=== PATIENT | female | born 1940 | race Caucasian/White ===

== ENCOUNTER 2017-12-31 12:55 | Outpatient (CLI) | payer MEDICARE | END 2017-12-31 12:56 | disposition home or self-care (01) | LOC: BICMAMMO 12:55 | PROVIDERS: ATTEND Internal Medicine | DX: Z12.31 Encounter for screening mammogram for malignant neoplasm of breast (principal) | CPT/HCPCS: 77063; 77067 ==

== ENCOUNTER 2018-01-20 18:15 | Observation (INO) | payer MEDICARE ==
[2018-01-20 18:58] LABS: #Eosinphils 0.1 thou/uL (0.0-0.7); #Lymphocytes 1.6 thou/uL (1.20-3.40); #Monocytes 0.5 thou/uL (0.11-0.59); #Neutrophils 3.7 thou/uL (1.40-6.50); %Basophils 0.5 % (0.0-1.0); %Eosinophils 2.2 % (0.0-10.0); %Lymphocytes 26.3 % (21.0-51.0); %Monocytes 8.2 % (0.0-10.0); %Neutrophils 62.8 % (42.0-75.0); Hemoglobin 13.3 g/dL (12.0-16.0); Mean Corpuscular HGB CONC 34.4 g/dL (32.0-36.0); Mean Corpuscular Hemoglobin 33.7 pg (27.0-31.0); Mean Corpuscular Volume 98.2 fl (81.0-99.0); Mean Platelet Volume 5.8 fL (7.4-10.4); Platelet Count 191 thou/uL (130-400); RBC Distribution Width 11.1 % (11.5-14.5); Red Blood Cell (RBC) Count 3.95 mill/uL (4.20-5.40); White Blood Cell (WBC) Count 5.9 thou/uL (4.8-10.8)
[2018-01-20 19:21] LABS: ALT (SGPT) 17 U/L (8-55); AST (SGOT) 26 U/L (5-34); Alkaline Phosphatase 95 U/L (40-150); Anion Gap 12 mmol/L (10-20); BUN (Urea Nitrogen) 37 mg/dL (9.8-20.1); Bilirubin, Total 0.6 mg/dL (0.2-1.2); Calc. Creatinine Clearance 0 mL/min (70-130); Calcium 9.6 mg/dL (7.8-10.44); Carbon Dioxide 22 mmol/L (23-31); Chloride 102 mmol/L (98-107); Estimated GFR-MDRD 26; Globulin 2.9 g/dL (2.4-3.5); Glucose 123 mg/dL (83-110); Potassium 4.5 mmol/L (3.5-5.1); Protein, Total 6.9 g/dL (6.0-8.3); Sodium 131 mmol/L (136-145)
[2018-01-20 20:31] LABS: Prothrombin Time 13.7 SEC (12.0-14.7)
[2018-01-20] MEDS ORDERED: cloNIDine 0.1 MG TAB ONE (21:47)
--- NOTE | 2018-01-20 22:09 | CT ---
CT HEAD WITHOUT CONTRAST: 01/20/18 Multiple axial tomograms obtained through the head without IV enhancement. HISTORY: Mental status change. Ventricles have normal size and position. No evidence of intracranial hemorrhage, mass or infarct. IMPRESSION: No acute abnormality. POS: [facility]
[2018-01-20] MEDS ORDERED: hydrALAZINE 20 MG/ML VIAL ONE (22:30)
[2018-01-20] MEDS ORDERED: Acetaminophen 325 MG TAB PO PRN (23:57)
[2018-01-20] MEDS ORDERED: Ondansetron ODT 4 MG TAB SL PRN (23:57)
[2018-01-20] MEDS ORDERED: Sodium Chloride 0.9% 1,000 ML IV SCH (23:57)
[2018-01-20] MEDS ORDERED: Ondansetron HCl/PF 4 MG/2 ML Vial IVP PRN (23:57)
[2018-01-21] MEDS ORDERED: ALPRAZolam 0.5 MG TAB PO SCH (01:45)
[2018-01-21 02:34] VITALS: BMI 24.9
[2018-01-21] MEDS ORDERED: Acetaminophen 325 MG TAB PO PRN (05:00)
[2018-01-21] MEDS ORDERED: Sodium Chloride 0.9% 1,000 ML IV SCH ×2 (05:15→09:18)
--- NOTE | 2018-01-21 05:26 | HP ---
REASON FOR ADMISSION: Ataxic gait, acute kidney injury. HISTORY OF PRESENTING ILLNESS: Please note, patient is not a very good historian. She states she has been having trouble falling from last 24 hours when she tries to get up and walk. She is a right-handed person. No prior history of cerebrovascular accident. Per ER physician, patient apparently had upper extremity tremors and jerking spells, which started around 4:00 p.m. yesterday. The first episode occurred when she was at her hairdresser. She had a fall from standing position. On arrival in the ER, patient has had another episode, which lasted less than 10 seconds. The ER physician tried to ambulate patient, but patient was at high risk for fall even for standing. Currently, she has no complaints of chest pain, palpitation, PND, or orthopnea. No complaints of cough or expectoration. No complaints of urinary symptoms. PAST MEDICAL AND SURGICAL HISTORY: History of coronary artery disease with prior stent, hypertension, dyslipidemia, has had right nephrectomy done for infection when she was 31 years old, right carotid endarterectomy done by Dr. Ratliff 5 or 6 years back, hysterectomy, back surgery. CURRENT MEDICATIONS: Patient is on Plavix 75 mg daily, estrogen daily, losartan 50 mg twice daily, niacin 500 mg p.o. at bedtime. ALLERGIES: NORVASC and QUININE. PERSONAL HISTORY: Does not abuse alcohol or drugs. She lives with her . FAMILY HISTORY: Mother at the age of 94 years. She has had history of coronary artery disease. Father at the age of 76 years. He has had hardening of arteries. REVIEW OF SYSTEMS: The following complete review of systems was negative, unless otherwise mentioned in the HPI or below: Constitutional: Weight loss or gain, ability to conduct usual activities. Skin: Rash, itching. Eyes: Double vision, pain. ENT/Mouth: Nose bleeding, neck stiffness, pain, tenderness. Cardiovascular: Palpitations, dyspnea on exertion, orthopnea. Respiratory: Shortness of breath, wheezing, cough, hemoptysis, fever, or night sweats. Gastrointestinal: Poor appetite, abdominal pain, heartburn, nausea, vomiting, constipation, or diarrhea. Genitourinary: Urgency, frequency, dysuria, nocturia. Musculoskeletal: Pain, swelling. Neurologic/Psychiatric: Anxiety, depression. Allergy/Immunologic: Skin rash, bleeding tendency. PHYSICAL EXAMINATION: GENERAL: Patient is a 77-year-old female who is currently not in any acute distress. VITAL SIGNS: Blood pressure was 184/74 on arrival, currently 118/60, pulse 66 per minute, respiratory rate is 20 per minute, temperature 98.2 degrees Fahrenheit, saturating 95% on room air. NECK: Supple, no elevated JVD. HEENT: Eyes, extraocular muscles intact. Pupils are reacting to light. Oral cavity mucous membranes are moist. No exudates or congestion. CARDIOVASCULAR SYSTEM: S1, S2 heard. Regular rhythm. RESPIRATORY SYSTEM: Air entry 1+ bilateral. No rales or rhonchi. ABDOMEN: Soft, bowel sounds heard. No tenderness, rigidity, or guarding. EXTREMITIES: No peripheral edema or calf tenderness. VASCULAR SYSTEM: Peripheral pulses 1+ bilateral. No ischemic ulcerations or gangrene. CENTRAL NERVOUS SYSTEM: Cranial nerves are grossly intact. Motor system strength is 5/5 in all four extremities. Reflexes are 2+ bilateral. Babinski is downgoing. Gait was not tested. PSYCHIATRIC SYSTEM: Patient's mood is euthymic. No hallucinations or delusions. LABORATORY DATA AND X-RAY FINDINGS: EKG done shows normal sinus rhythm at 69 beats per minute. There is Q-wave seen in V2, V3. White count of 5.9, H&H 13 and 38, platelet count 191 with 62% neutrophils, MCV is 98. PT, INR within normal limits. Sodium 131, serum bicarbonate 22, BUN 37, creatinine 1.90, glucose 123. Liver enzymes within normal limits. Albumin is 4.0. TSH 0.64. CT brain done showed no acute abnormality. CLINICAL IMPRESSION AND PLAN: Patient will be under observation on stroke unit. The patient has had what is described as ataxic gait by ER physician, which is new onset from last 24 hours. It is unclear if this is related to supine hypotension or intrinsic brain abnormality. Her CT brain does not reveal any acute abnormality. Clinically, patient does not have any motor deficits. We will obtain MRI without contrast. Echo with 2D Doppler and a Neurology consultation with Dr. Sukhjinder Renee who is accessioner. She will be on aspirin, Plavix along with small dose of Crestor, niacin, and fish oil as before. We will hold off on all antihypertensive medications. She has mild acute kidney injury and will be gently hydrated with normal saline at 75 mL per hour. We will also obtain orthostatic blood pressures. The day team will ascertain more information along with a PT, OT evaluations as well, which might give more information as to her ataxic gait. CODE STATUS: FULL for now. MTDD
[2018-01-21 06:01] LABS: Cardiac Risk 1.9 (Less than 4.5)
[2018-01-21] MEDS ORDERED: Aspirin 325 mg Enteric Coated Tablet PO SCH (09:00)
--- NOTE | 2018-01-21 09:28 | PDOC.PN ---
- Subjective Encounter Start Date: 01/21/18 Encounter Start Time: 09:25 Patient seen at bedside. States she feels better, no further episodes of feeling faint. - Objective Resuscitation Status: Resuscitation Status FULL:Full Resuscitation MAR Reviewed: Yes Vital Signs & Weight: Vital Signs (12 hours) Temp Pulse Resp BP BP BP Pulse Ox 01/21/18 08:00 97.8 F 74 14 115/64 98 01/21/18 07:50 98.2 F 62 16 01/21/18 07:40 99/53 L 60/33 L 91/46 L 01/21/18 04:19 98.2 F 62 16 101/54 L 95 01/20/18 23:46 98.0 F 67 20 118/59 L 95 Weight Weight 132 lb I&O: 01/20/18 01/21/18 01/22/18 06:59 06:59 06:59 Intake Total 240 Balance 240 Result Diagrams: 01/20/18 18:50 01/20/18 18:50 Phys Exam - Physical Examination Constitutional: NAD HEENT: PERRLA Neck: no JVD Respiratory: no rales Cardiovascular: no significant murmur Gastrointestinal: soft Musculoskeletal: pulses present Neurological: moves all 4 limbs Fine tremor in LUE Psychiatric: A&O x 3 Dx/Plan (1) Orthostatic hypotension Code(s): I95.1 - ORTHOSTATIC HYPOTENSION Status: Acute (2) CAD (coronary artery disease) Code(s): I25.10 - ATHSCL HEART DISEASE OF [place] CORONARY ARTERY W/O ANG PCTRS Status: Chronic (3) Dyslipidemia Code(s): E78.5 - HYPERLIPIDEMIA, UNSPECIFIED Status: Chronic - Plan cont current plan of care, plan discussed w/ family, PT/OT, DVT proph w/lovenox * Increase IV Fluids. * Check Orthostatics after IV resuscitation * ECHO/MRI * Await Neurology evaluation * Daily Labs.
[2018-01-21] MEDS: Fish Oil 1,000 MG CAP PO SCH (09:40)
[2018-01-21] MEDS: Enoxaparin Sodium 40 MG/0.4 ML SYRINGE SC SCH (09:41)
[2018-01-21] MEDS: Clopidogrel Bisulfate 75 MG TAB PO SCH (09:41)
[2018-01-21] MEDS: Famotidine 20 MG TAB PO SCH (09:41)
[2018-01-21 12:38] LABS: Bacteria/HPF None Seen HPF (None Seen); Hyaline Casts/LPF NONE SEEN LPF (0-3 Hyaline); RBC/HPF None Seen HPF (0-3); Squamous Epithelial 0-3 HPF (0-3); WBC/HPF None Seen HPF (0-3)
--- NOTE | 2018-01-21 13:22 | CON ---
DATE OF CONSULTATION: 01/21/2018 CHIEF COMPLAINT: Ataxia. HISTORY OF PRESENT ILLNESS: The patient reports she was at her hairdresser's dressing place and she got up and fell and she sat down and tried to get up again and fell twice yesterday and this was unus ual and she was brought to the ER. No history of any double vision, numbness, tingling or weakness. Her daughter walked in the room during my visit and she stated it was very strange. Her arms were j erking for a while and then they got scared and brought her here and she had a couple of episodes whe re her arms would go up and jerk and she did not complain of this or chest pain, palpitations, loss o f consciousness. No cough, no urinary symptoms, no headache. The patient stated that she has been walking to the restroom, but has some support today and feels mo re close to baseline this morning. PAST MEDICAL HISTORY: Coronary artery disease with stent, hypertension, hyperlipidemia, right nephre ctomy for infection at age 31. PAST SURGICAL HISTORY: Carotid endarterectomy in 2011, hysterectomy, and back surgery in the past. She has not had any recent surgeries in the past 5 years. MEDICATIONS: She takes Plavix at home at 75 mg, estrogen, losartan and niacin. ALLERGIES: She is allergic to NORVASC, QUININE and AMLODIPINE. FAMILY HISTORY: Negative for strokes. LABORATORY DATA: Hemoglobin 13.3, hematocrit 38.8, white count 5.9, platelets 191. Chemistry: Sodi um 131, potassium 4.5, chloride 102, bicarbonate 22, BUN 37, creatinine 1.90, AST 26, ALT 17, alkalin e phosphatase 95. Serum protein 6.9, triglycerides 67, cholesterol 181, LDL 73, HDL 95. Heart disea se risk ratio 1.9. TSH 0.64. Coagulation: PT 13.7, INR 1.0, PTT 28. Her brain CT scan was negativ e, no acute intracranial abnormality was reported. PHYSICAL EXAMINATION: VITAL SIGNS: Temperature 97.9, pulse 64, respiratory rate 20, blood pressure 121/61 earlier this mor [place]ak[place] and at the time of my visit 109/67. GENERAL APPEARANCE: Thin built, well-nourished lady who is comfortable. CHEST: Clear vesicular breathing. CARDIOVASCULAR: S1, S2 heard, no murmurs. Carotids are clear. ABDOMEN: Soft, nontender, no organomegaly noted. NEUROLOGICAL: Higher intellectual functions normal. Cranial nerves II-XII normal. Normal extraocul ar movements. Normal fundus examination. Normal sensation of face bilaterally. Tongue midline, no atrophy noted. Normal hearing bilaterally. Normal elevation of palate. Motor examination: Bulk no rmal, tone normal, strength 5/5 throughout in upper and lower extremities. Muscle groups tested: Il iopsoas, hamstrings, quadriceps, ankle dorsiflexion, plantar flexion, deltoid, biceps, triceps, wrist extension and flexion, finger extension and flexion bilaterally. Deep tendon reflexes 2+ throughout in knee jerks, ankle jerks biceps, triceps, and brachioradialis. Sensory exam normal to touch, pinp reece, proprioception, vibration, and temperature bilaterally. Cerebellar: Normal [id number], he el-to-sanchez. Gait was normal. She does have mild balance problems when walking backward. IMPRESSION: Patient is a 77-year-old lady who reports she has had problems with balance since yester day and she fell twice. She also had sudden onset of involuntary movements, which is unusual for her and these primarily involved her upper extremities. Her examination was normal except for mild diff iculty with her balance when walking backwards. Differential diagnosis includes possible acute cereb rovascular event in the cerebellar area causing sudden disturbance in her balance. RECOMMENDATIONS: I would like to see MRI of the brain and I will follow up on her case.
--- NOTE | 2018-01-21 14:31 | MRI ---
MRI OF BRAIN: HISTORY: TIA. TECHNIQUE: Noncontrast enhanced MRI images brain. FINDINGS: Multiplanar, multisequence noncontrast enhanced MRI images of the brain obtained. The image demonstrate the brain to be unremarkable. No evidence of intracranial masses, hemorrhages, strokes, or contusions seen. The ventricles are of normal size. No evidence of areas of diffusion restriction seen. No evidence of flow void abnormality is seen in the major intracranial vessels. There does appear to be an approximately 9 mm area of slight increased signal on FLAIR weighted seque nces involving the medial aspect of the right superior frontal gyrus. This may represent a possible dural-based lesion including possible meningioma. No significant evidence of traumatic brain changes seen. IMPRESSION: Possible high right frontal dural-based lesion possibly representing a meningioma. Correlate with co ntrast-enhanced MRI images of brain. POS: [facility]
--- NOTE | 2018-01-21 20:29 | CON ---
DATE OF CONSULTATION: 01/21/2018 HISTORY OF PRESENT ILLNESS: Ms. Velazquez is a 77-year-old female that presented yesterday after a fal l. She is slightly off balance and has possible focal seizures in the upper extremities with jerking . She presented to [facility] Emergency Department and CT of the head incidentally found a 9 mm me ningioma on the right frontal region. On physical examination she is completely neurologically intac t. She has no focal motor or sensory deficits in the upper or lower extremity. Her sodium is 131, c reatinine is 1.9. Neurosurgery was consulted to follow up on the meningioma on the right frontal reg ion found on CT scan. ALLERGIES: NORVASC and CODEINE. PAST MEDICAL AND SURGICAL HISTORY: History of coronary artery disease with prior stent, hypertension , dyslipidemia, right nephrectomy done for infection when she is 31 years old, right carotid endarter ectomy by Dr. Ratliff 6 years ago, hysterectomy and lumbar surgery. CURRENT MEDICATIONS: 1. Plavix 75 mg daily. 2. Estrogen daily. 3. Losartan 50 mg twice daily. 4. Nystatin 500 mg p.o. at bedtime. SOCIAL HISTORY: The patient does not abuse alcohol or drugs. She lives with her . FAMILY HISTORY: Mother at age of 94. She has a history of coronary artery disease. Father d at the age of 76 and he has hardening of the arteries. REVIEW OF SYSTEMS: Patient admits to a jerking spells in the upper extremities, admits to ataxic gai t. Ten-point review of systems otherwise negative unless stated in above HPI. PHYSICAL EXAMINATION: VITAL SIGNS: Currently, temperature 98.1, pulse 61, respirations 29, O2 sats 95%, blood pressure is 159/74. GENERAL: The patient is alert and oriented x4, sitting in her bed in no distress. Her is at bedside. HEENT: Normocephalic, atraumatic. Hearing intact. Moist mucous membranes. NECK: Trachea is midline. CARDIOVASCULAR: The patient has regular rate and rhythm, normal S1, S2 heart sounds. No distal cyan osis or clubbing in the upper or lower extremities. EXTREMITIES: 5/5 strength bilaterally in the upper and lower extremities. No focal motor or sensory deficits. There is no peripheral edema or calf tenderness. RESPIRATORY: The patient has bilateral symmetric chest rise, no shortness of breath. No rales or rh onchi. NEUROLOGIC: Cranial nerves II-XII are grossly intact. Speech is fluent. She answers my questions a ppropriately. Reflexes are +2 bilaterally in upper and lower extremities. Babinski is downgoing. G ait was not tested. The patient is lying in bed. PSYCHIATRIC: The patient's mood is euthymic. No hallucinations or delusions. IMPRESSION: Ms. Velazquez is a 77-year-old female who presents with ataxic gait dizziness. CT scan of the head and MRI confirmed a right frontal lobe meningioma approximately 9 mm in width. PLAN: From a neurosurgical standpoint, there is no neurosurgical emergency at this time. We will fo llow Ms. Velazquez in outpatient with repeat MRI with and without contrast of the brain in 3 months. N eurology can be consulted to treat possible seizures in the upper extremities or investigate seizures . The patient can have an appointment sooner than 3 months if she would like to discuss the current MRI scan with Dr. Bro outpatient. If there are any further questions, please feel free to cont act Neurosurgery.
[2018-01-21] MEDS ORDERED: Melatonin 3 MG TAB PO SCH (21:00)
[2018-01-21] MEDS ORDERED: ALPRAZolam 0.25 MG TAB PO SCH (21:00)
[2018-01-21] MEDS ORDERED: Rosuvastatin 10 MG TAB PO SCH (21:00)
[2018-01-22 03:31] VITALS: TEMP 98.3
[2018-01-22 04:56] LABS: #Eosinphils 0.2 thou/uL (0.0-0.7); #Monocytes 0.5 thou/uL (0.11-0.59); #Neutrophils 2.1 thou/uL (1.40-6.50); %Basophils 0.5 % (0.0-1.0); %Eosinophils 3.7 % (0.0-10.0); %Lymphocytes 41.9 % (21.0-51.0); %Neutrophils 42.9 % (42.0-75.0); Hemoglobin 12.3 g/dL (12.0-16.0); Mean Corpuscular HGB CONC 35.3 g/dL (32.0-36.0); Mean Corpuscular Hemoglobin 34.3 pg (27.0-31.0); Mean Corpuscular Volume 97.3 fl (81.0-99.0); Mean Platelet Volume 5.7 fL (7.4-10.4); Platelet Count 156 thou/uL (130-400); RBC Distribution Width 10.8 % (11.5-14.5); Red Blood Cell (RBC) Count 3.57 mill/uL (4.20-5.40); White Blood Cell (WBC) Count 4.8 thou/uL (4.8-10.8)
[2018-01-22 05:14] LABS: Albumin 3.6 g/dL (3.4-4.8); Alkaline Phosphatase 99 U/L (40-150); Anion Gap 10 mmol/L (10-20); BUN (Urea Nitrogen) 23 mg/dL (9.8-20.1); Calc. Creatinine Clearance 34 mL/min (70-130); Calcium 8.8 mg/dL (7.8-10.44); Carbon Dioxide 22 mmol/L (23-31); Chloride 103 mmol/L (98-107); Estimated GFR-MDRD 38; Globulin 2.5 g/dL (2.4-3.5); Glucose 89 mg/dL (83-110); Potassium 4.2 mmol/L (3.5-5.1); Protein, Total 6.1 g/dL (6.0-8.3); Sodium 131 mmol/L (136-145)
[2018-01-22 05:15] LABS: ALT (SGPT) 17 U/L (8-55); AST (SGOT) 23 U/L (5-34)
[2018-01-22 08:23] VITALS: BP 155/65
[2018-01-22] MEDS: Clopidogrel Bisulfate 75 MG TAB PO SCH (09:11)
[2018-01-22] MEDS: Enoxaparin Sodium 40 MG/0.4 ML SYRINGE SC SCH (09:12)
[2018-01-22] MEDS: Famotidine 20 MG TAB PO SCH (09:12)
[2018-01-22] MEDS: Fish Oil 1,000 MG CAP PO SCH (09:12)
--- NOTE | 2018-01-22 12:51 | PRG ---
DATE OF SERVICE: 01/22/2018 CHIEF COMPLAINT: Asked to evaluate the patient for her movements and possible seizures and seizure prophylaxis. INTERVAL HISTORY: The patient and daughter were in the room and I spoke to them in detail. The history is what she had reported to me, the patient was in the beauty shop and basically was unable to support and fell twice in fact and during that time and also post this event even at the hospital for a short duration. She had movement of both her hands described to me as jerking movement, not of one side, but both hands simultaneously and this was intermittent in nature and she was told she was dehydrated and following IV dehydration this subsided. The patient and daughter both report that there was no involvement of the face or the head, was simply hand movements and she never had this before. There was no associated loss of consciousness. INTERVAL LABS AND REPORTS: Laboratory reports show white count 4.8, hemoglobin 12.3, hematocrit 34.7, and platelets 156. Chemistry: Sodium 131, potassium 4.2 , chloride 103, bicarbonate 22, BUN 23, creatinine 1.35. Her additional data, MRI of the brain showed possible high right frontal dural-based lesion, possibly representing a meningioma and Neurosurgery was consulted for this. No evidence of stroke. PHYSICAL EXAMINATION: VITAL SIGNS: Blood pressure 158/81 sitting, standing 157/78 and supine 155/65; pulse 70; temperature 97.7; respiratory rate 16. NEUROLOGIC: Higher intellectual functions normal. Cranial nerves, no facial asymmetry, normal extraocular movements, tongue midline. Motor exam, bulk normal, tone normal, strength 5/5 in upper and lower extremities and gait is normal. IMPRESSION: The patient with likely myoclonus in the setting of an event, which caused balance problems and unsteadiness, unclear what cause it could be a transient ischemic event versus dehydration versus orthostatic hypotension, but current orthostatics are normal. At this time, based on her description, the movement of her hands and arms seems mostly myoclonus or tremor. RECOMMENDATIONS: 1. I had discussed this with the patient and daughter and requested a prescription for Keppra. They requested that I give it a prescription to be used if the movements returned. 2. I have suggested that she can take a prescription for Keppra 500 b.i.d. home to fill and use if she has return of involuntarily movements. 3. She will also follow up with Dr. Mock for evaluation, particularly of this entire event where she could not keep her balance and could not get up on two occasions on the day of admission. At this time, there is no evidence of CVA. MTDShawna
--- NOTE | 2018-01-22 15:33 | DIS ---
DATE OF ADMISSION: 01/21/2018 DATE OF DISCHARGE: 01/22/2018 DISCHARGE DIAGNOSES: 1. Newly diagnosed meningioma 0.9 cm. 2. Fall from same level. 3. Ataxia. 4. Chronic diastolic congestive heart failure without acute exacerbation. 5. Valvular heart disease with mild mitral regurgitation, moderate aortic insufficiency, and mild tr icuspid regurgitation. 6. Acute kidney injury, resolved. 7. History of coronary artery disease without angina. 8. Hyperlipidemia. 9. Orthostatic hypotension. CONSULTATIONS: 1. Neurology, Dr. Thelma Slaughter. 2. Neurosurgery, Mr. Adam Avalos PA-C. HISTORY AND PHYSICAL: Ms. Velazquez is a 77-year-old female, who presented to the emergency department on 01/20/2018 in the p.m. for abnormal gait and increased creatinine. She has been having trouble f or about 24 hours prior to presentation of falling when she walked. No history of stroke or previous ataxia. She had a fall from a standing position and was brought to the Emergency Department. Here, she had another episode and was lasted less than 10 seconds. She is unable to ambulate, so we were called for admission for workup. HOSPITAL COURSE: The patient examined and admitted to the hospital by Dr. Hendricks. Neurology an d Neurosurgery were consulted. Echocardiogram was requested. Echo was done that showed normal EF with mild diastolic dysfunction, MRI showed a 0.9 cm meningioma. The patient was seen by Neurology, who initially requested the MRI. As a result of the abnormal MRI, Neurosurgery was consulted and declared as a nonoperative lesion. C an follow up with Dr. Bro in the clinic in 3 months. Overnight, the patient did well and today was feeling much better and much more stable. Neurology cleared for discharge, recommended she be o n Keppra for seizure prophylaxis and resume her regular medications. PHYSICAL EXAMINATION: The patient was seen and examined on the day of discharge. Discharge plan dis position was discussed with the patient and her face to face at the bedside. DISCHARGE MEDICATIONS: 1. Keppra 500 mg p.o. b.i.d., prescription sent. 2. Losartan 50 mg p.o. b.i.d. 3. Estropipate 0.75 mg p.o. daily. 4. Clopidogrel 75 mg daily. 5. Cholecalciferol 2000 units daily. 6. Aspirin 81 mg daily. 7. Xanax 0.5 mg p.o. at bedtime p.r.n. anxiety. 8. Melatonin 3 mg p.o. at bedtime p.r.n. insomnia. 9. Multivitamin Centrum Silver Women's 1 daily. 10. Niacin 500 mg p.o. at bedtime. 11. [place] 3 fatty acids 3 capsules p.o. daily. 12. Pravachol 40 mg p.o. at bedtime. FOLLOWUP APPOINTMENTS: 1. Primary care physician, Dr. Darnell Gómez within 7 days. 2. Neurology, Dr. Evelia Mock in [address] Mansoor Bro in 14 days. DISCHARGE DIET: Heart healthy recommended. DISCHARGE ACTIVITY: As tolerated. DISCHARGE CONDITION: Stable. DISPOSITION: Will be discharged home via private vehicle with her .
[2018-01-22] MEDS ORDERED: levETIRAcetam 500 MG TAB PO SCH (21:00)
== END 2018-01-22 10:52 | disposition home or self-care (01) ==
LOC: ERS 18:15 → 2SE 22:54
PROVIDERS: ADMIT Internal Medicine; ATTEND Internal Medicine
DX: D32.0 Benign neoplasm of cerebral meninges (principal); R27.0 Ataxia, unspecified; I11.0 Hypertensive heart disease with heart failure; I50.32 Chronic diastolic (congestive) heart failure; N17.9 Acute kidney failure, unspecified; I25.10 Atherosclerotic heart disease of native coronary artery without angina pectoris; E78.5 Hyperlipidemia, unspecified; I95.1 Orthostatic hypotension; R56.9 Unspecified convulsions; Z88.8 Allergy status to other drugs, medicaments and biological substances; Z95.5 Presence of coronary angioplasty implant and graft; Z79.01 Long term (current) use of anticoagulants; Z79.899 Other long term (current) drug therapy; Z90.5 Acquired absence of kidney; W18.30XA Fall on same level, unspecified, initial encounter
CPT/HCPCS: 70450; 70551; 80053; 80061; 81015; 83735; 85025; 85610; 85652; 85730; 93005; 93306; 96360; 96361; 96372 ×2; 97139 ×3; 97530; 99285; G0378; G8978; G8979; G8980; G8987; G8988; G8989; 36415; 84443; G9168-GN-CI; G9169-GN-CH; J0360; J1650

== ENCOUNTER 2018-08-01 13:18 | Outpatient (CLI) | payer MEDICARE ==
[~2018-08-01 13:18] MED LIST: Gadobenate Dimeglumine 529 MG/1 ML (20ML VIAL) ONE
--- NOTE | 2018-08-01 16:34 | MRI ---
MRI BRAIN WITH AND WITHOUT CONTRAST: HISTORY: Neoplasm of meninges, benign. COMPARISON: 01/21/18, 09/17/09. TECHNIQUE: Brain MRI is performed with and without intravenous Gadolinium administration. Multisequential, mult iplanar imaging is performed. FINDINGS: No hemorrhage on the axial gradient echo sequence. No parenchymal mass, mass effect, or midline shift. Brain volume, age appropriate. Cortical garber-wh ite matter differentiation is preserved. Ventricles and sulci are patent and symmetric. Central arterial flow voids are maintained. Absent restricted diffusion. T2 and FLAIR white matter hyperintensities due to chronic small-vessel ischemic changes are identifie d. In the anterior right frontal convexity, extraaxial in location, is an intrinsic T1 hypointense mass with evidence of enhancement, measuring 1 cm mediolateral x 0.8 cm anterior posterior x 0.6 cm cranio caudal. An anterior right parafalcine meningioma is favored. No significant mass effect upon the un derlying calvarium. No evidence of vasogenic edema. No midline shift. Basilar cisterns are patent. Brain volume is age appropriate. No evidence of hydrocephalus. Cortical garber-white matter differe ntiation is preserved. Mild mucosal thickening in the ethmoid air cells. Adequate aeration of the mastoid air cells. No pathologic enhancement of the brain parenchyma. IMPRESSION: Extraaxial mass in the anterior right frontal convexity, right parafalcine in location, compatible wi th meningioma. POS: [facility]
== END 2018-08-01 13:19 | disposition home or self-care (01) ==
LOC: TBSIIMAG 13:18
PROVIDERS: ATTEND Neurological Surgery
DX: D32.9 Benign neoplasm of meninges, unspecified (principal); G93.9 Disorder of brain, unspecified
CPT/HCPCS: 70553; 82565; A9579

== ENCOUNTER 2019-01-02 13:42 | Outpatient (CLI) | payer MEDICARE | END 2019-01-02 13:43 | disposition home or self-care (01) | LOC: BICMAMMO 13:42 | PROVIDERS: ATTEND Internal Medicine | DX: Z12.31 Encounter for screening mammogram for malignant neoplasm of breast (principal); R92.1 Mammographic calcification found on diagnostic imaging of breast | CPT/HCPCS: 77063; 77067 ==

== ENCOUNTER 2021-07-16 13:28 | Outpatient (CLI) | payer MEDICARE ==
[~2021-07-16 13:28] MED LIST changes: -Gadobenate Dimeglumine 529 MG/1 ML (20ML VIAL) ONE; +Magnevist 469MG/ML 20 ML VIAL ONE
== END 2021-07-16 13:29 | disposition home or self-care (01) ==
LOC: MRI 13:28
PROVIDERS: ATTEND Neurological Surgery
DX: D33.2 Benign neoplasm of brain, unspecified (principal); I67.82 Cerebral ischemia
CPT/HCPCS: 70553; A9579

== ENCOUNTER 2021-07-23 14:27 | Outpatient (CLI) | payer MEDICARE | END 2021-07-23 14:28 | disposition home or self-care (01) | LOC: BICMAMMO 14:27 | PROVIDERS: ATTEND Internal Medicine | DX: Z12.31 Encounter for screening mammogram for malignant neoplasm of breast (principal); Z98.82 Breast implant status | CPT/HCPCS: 77063; 77067 ==

== ENCOUNTER 2022-05-14 14:03 | Outpatient (CLI) | payer MEDICARE | END 2022-05-14 14:04 | disposition home or self-care (01) | LOC: SCSMRI 14:03 | PROVIDERS: ATTEND Neurological Surgery | DX: D33.2 Benign neoplasm of brain, unspecified (principal); I67.82 Cerebral ischemia | CPT/HCPCS: 70553 ==

== ENCOUNTER 2023-07-08 10:09 | Outpatient (CLI) | payer OTHER | END 2023-07-08 10:10 | disposition home or self-care (01) | LOC: MRI 10:09 | PROVIDERS: ATTEND Neurological Surgery | DX: D32.0 Benign neoplasm of cerebral meninges (principal) | CPT/HCPCS: 70553; 82565 ==

== ENCOUNTER 2024-09-19 12:22 | Outpatient (CLI) | payer OTHER | END 2024-09-19 12:23 | disposition home or self-care (01) | LOC: MRI 12:22 | PROVIDERS: ATTEND Radiology Radiation Oncology | DX: D32.0 Benign neoplasm of cerebral meninges (principal); I67.82 Cerebral ischemia | CPT/HCPCS: 36415; 70553; 76376; 82565 ==

== ENCOUNTER 2025-10-16 12:40 | Outpatient (CLI) | payer OTHER | END 2025-10-16 12:41 | disposition home or self-care (01) | LOC: MRI 12:40 | PROVIDERS: ATTEND Radiology Radiation Oncology | DX: D32.0 Benign neoplasm of cerebral meninges (principal); G93.9 Disorder of brain, unspecified | CPT/HCPCS: 70553; 76376 ==